=== PATIENT | male | born 1995 | race Caucasian/White ===

== ENCOUNTER 2022-04-27 11:28 | Emergency (ER) | payer MEDICAID, SELFPAY ==
[2022-04-27 11:58] VITALS: BP 109/63; PULSE 110; RESP 20; TEMP 37.1; O2SAT 96
--- NOTE | 2022-04-27 12:08 | ED.URI ---
HPI - URI/Sore Throat General Chief Complaint: Upper Respiratory Infection Stated Complaint: cough/body aches/weakness Time Seen by Provider: 04/27/22 12:05 Source: patient and RN notes reviewed Mode of arrival: ambulatory Limitations: no limitations History of Present Illness MD elicited complaint: cough Onset (ago): day(s) (4) Consistency: constant Description of mucous: yellow Able to tolerate fluids by mouth: Yes Exacerbating factors: other ( coughing) Relieving factors: nothing Associated symptoms: fever ( Subjective), chills, myalgias, sore throat, cough ( yellow phlegm), nausea and vomiting Treatments prior to arrival: cold medicine Related Data Allergies Allergy/AdvReac Type Severity Reaction Status Date / Time No Known Allergies Allergy Verified 04/27/22 12:28 Review of Systems Review of Systems: All systems reviewed & are unremarkable except as noted in HPI and below PMFSH Past Medical History Medical History (Updated 04/27/22 @ 13:32 by Arvind Palacios MD) No active medical problems Surgical History Surgical History (Updated 04/27/22 @ 12:15 by Arvind Palacios MD) H/O eye surgery as a child Social History Social History (Updated 04/27/22 @ 12:15 by Arvind Palacios MD) Smoking status: Never smoker Exam Const: General: healthy appearing, no acute distress and alert Nutritional Appearance: well nourished Orientation/consciousness: patient oriented x3 Limitations: no limitations HENMT: Head: normal to inspection Ears: external ears normal and TM's normal bilaterally Face/Nose/Sinus: Normal external nose present Face and sinus: normal facial exam Mouth: Yes moist mucous membranes Throat: posterior oropharynx abnormal erythema; no exudates Eyes: Conjunctivae: conjunctivae normal Pupils: Equal, round and reactive pupils present EOM: EOMs intact bilaterally Neck: Neck: normal visual inspection Resp: Effort & Inspection: normal respiratory effort Auscultation: clear to auscultation bilaterally Cardio: Rate: regular rate Rhythm: regular rhythm GI: GI Palp: Yes Soft to palpation and No Tenderness to palpation present (GI) Auscultation: normal bowel sounds Back/Spine/Pelvis: Cervical Spine: cervical ROM normal Thoracic/Lumbar Spine: thoraco-lumbar ROM normal Skin: General skin exam: normal color Rashes: no rashes Neuro: General: patient oriented x3, moves all extremities, no focal motor deficits and CN's II-XI intact bilaterally Speech: normal speech Gait exam (Neuro): Normal gait present Extrem: General: normal to inspection and no clubbing, cyanosis or edema Psych: Mental Status: mental status grossly normal Affect: normal affect Attitude: cooperative Course Course Emergency Course: patient angry about the way I swabbed his throat. He is unable to hold his tongue back for me to get a good visualization initially and then I had to hold his tongue down try to swab the back of his throat grabbed my arms and told me to get out. Vital Signs Vital signs: Vital Signs Temperature 37.1 C 04/27/22 11:58 Pulse Rate 110 H 04/27/22 11:58 Respiratory Rate 20 04/27/22 11:58 Blood Pressure 109/63 04/27/22 11:58 Pulse Oximetry 96 04/27/22 11:58 Oxygen Delivery Room Air 04/27/22 11:58 Temperature 37.1 C 04/27/22 11:58 Pulse Rate 100 04/27/22 12:30 Respiratory Rate 18 04/27/22 12:30 Blood Pressure 123/65 04/27/22 12:30 Pulse Oximetry 95 04/27/22 12:30 Oxygen Delivery Room Air 04/27/22 12:30 MDM - URI/Sore Throat Differential Diagnosis Differential diagnosis: Likely upper respiratory infection, viral infection, bronchitis, influenza, pharyngitis and other ( COVID) Lab Data Attestation: I reviewed the patient's lab results. Labs: Lab Results 04/27/22 04/27/22 Range/Units 11:37 13:11 Influenza A (RT-PCR) Negative (Negative) Influenza B (RT-PCR) Negative (Negative) SARS-CoV-2 RNA (RT-PCR) Negative (Negative) G
[2022-04-27 12:30] VITALS: BP 123/65; PULSE 100; RESP 18; O2SAT 95
[2022-04-27 12:55] LABS: Influenza A QL RT-PCR Negative (Negative); Influenza B QL RT-PCR Negative (Negative); SARS-CoV-2 RNA PCR Negative (Negative)
[2022-04-27 13:30] LABS: Strep Group A RT-PCR DETECTED (Negative)
--- NOTE | 2022-04-27 14:02 | PC.NURSE ---
Patient returned phone call to RN after multiple attempts of RN attempting to reach patient regarding results. Patient updated on +strep results and need to chicken picker antibiotic medication of Amoxicillin to start and take TID for 10 days, which was called into patient preferred pharmacy by Dr. Palacios. Patient education provided by RN including pain management with OTC pain medications. Patient verbalized understanding.
--- NOTE | 2022-04-27 14:15 | PC.NURSE ---
patient phoned ED again. Education provided including initiation of oral antibiotics as soon as possible, OTC pain management, increased fluid intake and salt water gargle discussed. Understanding verbalized by patient.
== END 2022-04-27 13:28 | disposition left against medical advice (07) ==
PROVIDERS: Emergency Provider Emergency Medicine; PCP Physician Assistant
DX: J02.0 Streptococcal pharyngitis (principal); Z20.822 Contact with and (suspected) exposure to COVID-19
CPT/HCPCS: 87636; 87651; 99283